=== PATIENT | female | born 1985 | race Caucasian/White ===

== ENCOUNTER 2017-03-16 21:05 | Emergency (ER) | payer OTHER ==
[2017-03-16 21:18] VITALS: BP 140/84; PULSE 90; TEMP 97; BMI 25.8
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
[2017-03-16 23:28] LABS: BASOPHIL 0.5 % (0-2.0); EOSINOPHIL 0.8 % (0-4.5); MCH 29.2 pg (25.7-33.7); MCHC 33.5 g/dl (32.0-36.0); MEAN CELL VOLUME 87.1 fl (80-96); MEAN PLT VOLUME 7.7 fl (7.5-11.1); NEUTROPHILS 75.7 % (42.8-82.8); PLATELET COUNT 400 K/MM3 (134-434); RDW 13.2 % (11.6-15.6)
[2017-03-16 23:56] LABS: ALBUMIN 3.7 g/dl (3.4-5.0); ANION GAP 11 (8-16); CALCIUM 8.9 mg/dL (8.5-10.1); CO2 24 mmol/L (21-32); CREATININE 0.5 mg/dL (0.55-1.02); GLUCOSE,RANDOM 117 mg/dL (74-106); SGOT/AST 7 U/L (15-37); SGPT/ALT 19 U/L (12-78)
[2017-03-16 23:58] LABS: ALK PHOS 85 U/L (45-117); BILIRUBIN,TOTAL 0.4 mg/dL (0.2-1.0); TOT PROT 7.5 g/dl (6.4-8.2)
[2017-03-17 00:42] LABS: INR 0.99 (0.82-1.09); PROTHROMBIN TIME (PATIENT) 11.2 SEC (9.98-11.88)
[2017-03-17 00:45] LABS: ACTIVATED PTT 31.6 SECONDS (26.9-34.4)
[2017-03-17] MEDS ORDERED: HYDROmorphone HCL 2 MG TABLET PO ONE (02:38)
[2017-03-17] MEDS ORDERED: HYDROmorphone HCL 2 MG TABLET ONE (02:43)
--- NOTE | 2017-03-17 09:36 | EKG ---
Test Reason : Blood Pressure : / mmHG Vent. Rate : 075 BPM Atrial Rate : 075 BPM P-R Int : 174 ms QRS Dur : 080 ms QT Int : 366 ms P-R-T Axes : 033 048 032 degrees QTc Int : 408 ms POOR DATA QUALITY, INTERPRETATION MAY BE ADVERSELY AFFECTED NORMAL SINUS RHYTHM NORMAL ECG NO PREVIOUS ECGS AVAILABLE Confirmed by KAREN SOOD MD ([id number]) on 03/17/2017 9:36:24 AM Referred By: Confirmed By:KAREN SOOD MD
== END 2017-03-17 03:46 | disposition home or self-care (01) ==
LOC: JER 21:05
PROC: 2W3CX1Z Immobilization of Right Lower Arm using Splint (ICD-10-PCS; principal; 2017-03-16)
DX: V43.62XA Car passenger injured in collision with other type car in traffic accident, initial encounter (principal); Y92.488 Other paved roadways as the place of occurrence of the external cause; Y93.89 Activity, other specified; Y99.8 Other external cause status
CPT/HCPCS: 36415; 70450-TC; 71010-TC; 72070-TC; 72100-TC; 72125-TC; 72170-TC; 73030-TC-RT; 73060-TC-RT; 73090-TC-RT; 73110-TC-RT; 73130-TC-RT; 73552-TC-RT; 80053; 84703; 85025; 85610; 85730; 86850; 86900; 86901; 93005; 93010; 99283-25

== ENCOUNTER 2017-08-22 05:11 | Day surgery (SDC) | payer OTHER ==
[2017-08-17 17:18] VITALS: BMI 26.1
[~2017-08-22 05:11] MED LIST: BUPIVACAINE HCL/PF 0.5% (5MG/ML) 10 ML VIAL IJ ONE; LIDOCAINE HCL 1%, 10 MG/ML (20ML VIAL) INF ONE; ceFAZolin SODIUM 1 GM VIAL IVPB ONE
--- NOTE | 2017-08-22 08:04 | HP ---
[facility] - Chief Complaint Chief Complaint: right wrist pain History of Present Illness: right Dequervain's History Source: Patient Limitations to Obtaining History: No Limitations - Past Medical History Allergies/Adverse Reactions: Allergies Allergy/AdvReac Type Severity Reaction Status Date / Time morphine Allergy "itchy" Verified 08/17/17 17:25 shrimp Allergy "tongue Verified 08/17/17 17:25 swells" wheat Allergy "gluten Verified 08/17/17 17:25 allergy" ...LMP: 08/04/17 - Current Medications Current Medications: Home Medications Medication Instructions Recorded NK [No Known Home Medication] 03/17/17 [facility]ellite Physical Exam - Physical Examination General Appearance: Well Nourished ENT: Clear Lung: Clear to auscultation Heart: Regular rate & rhythm Breasts: Soft Extremities: No edema [facility]ellite Impression/Plan - Impression/Plan Impression: right Dequervain's Operative Procedure: right Dequervain's release Date to be Performed: 08/22/17
[2017-08-22] MEDS ORDERED: MIDAZOLAM HCL 2 MG/2 ML SINGLE DOSE VIAL ONE (09:58)
[2017-08-22] MEDS ORDERED: PROPOFOL 20 ML ONE (09:58)
[2017-08-22] MEDS ORDERED: ONDANSETRON 4 MG/2 ML VIAL IVPUSH PRN (09:59)
[2017-08-22] MEDS ORDERED: LACTATED RINGERS SOLUTION 1,000 ML IV SCH (10:00)
[2017-08-22] MEDS ORDERED: ceFAZolin SODIUM 1 GM VIAL ONE (11:24)
[2017-08-22] MEDS ORDERED: ceFAZolin SODIUM 1 GM VIAL IVPB ONE (11:25)
[2017-08-22] MEDS ORDERED: DEXAMETHASONE SOD PHOSPHATE 4 MG/1 ML VIAL ONE (11:32)
[2017-08-22] MEDS ORDERED: LIDOCAINE HCL 1%, 10 MG/ML (20ML VIAL) INF ONE (11:43)
[2017-08-22] MEDS ORDERED: BUPIVACAINE HCL/PF 0.5% (5MG/ML) 10 ML VIAL IJ ONE (11:43)
--- NOTE | 2017-08-22 12:05 | OP ---
Operative Note - Note: Operative Date: 08/22/17 Pre-Operative Diagnosis: right Dequervain's Operation: right Dequervain's release, tendon sheath excision Post-Operative Diagnosis: Same as Pre-op Surgeon: Fan Hartley Anesthesiologist/AWNING CRAFTSMAN: Lorin Galdamez Anesthesia: Local, MAC Specimens Removed: tendon sheath Estimated Blood Loss (mls): 0 Drains, Volume Out (mls): 0 Blood Volume Replaced (mls): 0 Fluid Volume Replaced (mls): 500 Operative Report Dictated: Yes
[2017-08-22 13:24] VITALS: BP 121/83; TEMP 97.9
--- NOTE | 2017-08-22 13:24 | OP ---
DATE OF OPERATION: 08/22/2017 PREOPERATIVE DIAGNOSIS: Right de Quervain's tenosynovitis. POSTOPERATIVE DIAGNOSIS: Right de Quervain's tenosynovitis. PROCEDURE: Right de Quervain's release and tendon sheath excision. SURGEON: Fan Hernandez MD ASSISTANTS: None. ANESTHESIA: , STERILE PROCESSING TECHNICIAN. MAC anesthesia, local injection of 10 mL 0.5% Marcaine and 1% lidocaine mix. DRAINS: None. COMPLICATIONS: None. SPECIMEN: Tendon sheath, right wrist. BLOOD LOSS: None. BLOOD GIVEN: None. FLUID REPLACEMENT: 500 mL. This patient is a 31-year-old female with preoperative diagnosis of recurrent severe right de Quervain's tenosynovitis. After understanding the potential risks, complications, alternatives, and benefits of surgical versus nonsurgical treatment, the patient elected to undergo this procedure. The patient was brought to the operating room, peripheral IV placed, IV sedation given. Two grams of IV Ancef was given. MAC anesthesia was induced. The right upper extremity was prepped and draped in sterile fashion, elevated, exsanguinated with Esmarch bandage, tourniquet inflated to 250 mmHg. A longitudinal incision was marked out with a marking pen and 10 mL of 0.5% Marcaine and 1% lidocaine mix was injected in and around the surgical incision. Incision was made with a number 15 scalpel blade. Subcutaneous hemostasis achieved with bipolar cautery. Dissection done with curved Littler scissors. A Billings elevator was also used to free up adhesions on the outside of the tendon sheath. The first dorsal wrist compartment was directly visualized and a number 15 scalpel blade was utilized to excise the tendon sheath roof, which was passed off the table as specimen. I left a volar lip to prevent subluxation. The distal and proximal extent of the release were done with Littler scissors and checked with a Billings elevator. I then used a Ragnell retractor to bring the tendon out through the wound. There were no significant abnormalities such as a secondary sub-sheath or multiple accessory extensor tendons. The area was copiously irrigated and washed out. Again, I checked the release. It was seen to be complete distally and proximally. Will bathe the area with another 2 mL of local anesthetic. The deep dermal layer was closed with 4-0 undyed Vicryl. Final skin reapproximation was done with a running subcuticular 4-0 Biosyn stitch. The area was then washed and dried, covered with Steri-Strips, 4 x 4 gauze, fluffs between the fingers, Webril, and a 4-inch roll was used to make a dorsal thumb spica splint. This was wrapped with a Lary and Coban. The tourniquet was taken down after a total tourniquet time of 15 minutes. There were no complications during the case. The patient tolerated the procedure quite well. He was brought to ambulatory recovery in stable condition. FAN HERNANDEZ M.D. [id number]
[2017-08-22 13:25] VITALS: PULSE 79
== END 2017-08-22 13:25 | disposition home or self-care (01) ==
LOC: JASU-SURG 05:11
PROVIDERS: ATTEND Orthopaedic Surgery
PROC: 0LB50ZZ Excision of Right Lower Arm and Wrist Tendon, Open Approach (ICD-10-PCS; 2017-08-22)
PROC: 0LN50ZZ Release Right Lower Arm and Wrist Tendon, Open Approach (ICD-10-PCS; principal; 2017-08-22 11:30)
DX: M65.4 Radial styloid tenosynovitis [de Quervain] (principal)
CPT/HCPCS: 84703; 88304-TC